=== PATIENT | female | born 1955 | race Caucasian/White ===

== ENCOUNTER 2025-03-26 10:24 | Day surgery (SDC) | payer MEDICARE, OTHER ==
[~2025-03-26 10:24] MED LIST: Lactated Ringers 1,000 ML IV ONE; Marcaine Mpf 0.5% Vial 30 Ml ONE; Xylocaine 1% Vial 30 ML PF IJ ONE
[2025-03-26] MEDS ORDERED: Lactated Ringers 1,000 ML IV ONE (11:16)
[2025-03-26] MEDS: Lactated Ringers 1,000 ML IV SCH (11:24)
[2025-03-26 11:45] VITALS: RESP 16
[2025-03-26 11:48] LABS: Hematocrit 41.2 % (34.1-44.9); Hemoglobin 13.7 g/dL (11.2-15.7); Mean Corpuscular Hemoglobin 30.7 pg (25.6-32.2); Mean Corpuscular Hgb Concent. 33.3 g/dL (32.2-35.5); Platelet Count 231 x10^3/uL (182-369); Red Blood Count 4.46 x10^6/uL (3.93-5.22); White Blood Count 6.5 x10^3/uL (3.98-10.04)
[2025-03-26] MEDS: VANCOMYCIN 1 GRAM/200 ML BAG 1 GM/200 ML PIGGYBACK IV SCH (12:06)
[2025-03-26 12:28] LABS: Calcium 9.8 mg/dL (8.4-10.2); Carbon Dioxide 24.0 mmol/L (22-30); Creatinine 1 0.97 mg/dL (0.52-1.04); EST GLOMERULAR FILTRATION RATE 63.7 ML/MIN; Glucose 89.0 mg/dL (74-106); Potassium 4.0 mmol/L (3.5-5.1); SGOT/AST 30.0 U/L (14-36); SGPT/ALT 18.0 U/L (0-35); Total Protein 7.5 g/dL (6.3-8.2)
[2025-03-26] MEDS ORDERED: SUBLIMAZE 100 MCG/2 ML ONE (12:56)
[2025-03-26] MEDS ORDERED: Xylocaine-Mpf 2% 5 Ml Vial ONE (12:56)
[2025-03-26] MEDS ORDERED: Zofran 4 MG/2 ML VIAL ONE (12:56)
[2025-03-26] MEDS ORDERED: propofoL IV ONE (12:56)
[2025-03-26] MEDS ORDERED: Versed 2 MG/2 ML Injection ONE (12:56)
[2025-03-26 14:07] VITALS: TEMP 97.5
[2025-03-26 14:24] VITALS: BP 124/69; PULSE 57; O2SAT 99
--- NOTE | 2025-03-30 08:27 | OP ---
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 2) Right foot pain. 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 2) Right foot pain. PROCEDURE: Decompression of neuroma, right foot. SURGEON: Isaac Son DPM LEATHER TOGGLER: None. ANESTHESIA: General. HEMOSTASIS: Ankle tourniquet set to 250 mmHg for a total of 11 total tourniquet minutes. ESTIMATED BLOOD LOSS: Minimal. MATERIALS: 4-0 Monocryl, 3-0 nylon. 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 She has had a significant amount of discomfort and pain depending on certain types of shoes that she has worn. She has had some relief with the use of orthotics; however, she feels relegated to the use of the orthotics and would like a little bit more freedom. She does have pain with a pencil test and a palpable Deangelo click when this was performed. An MRI demonstrates a thickening of the nerve at the level of the 3rd web space characteristic of an interdigital neuroma. From that standpoint, we have decided to proceed with the decompression as the complications associated with a neurectomy is not ideal and from that standpoint, high success rates have demonstrated improvement of patient symptoms in approximately 90% of cases. From that standpoint, patient has been made aware of all risks, complications, and benefits of surgical intervention at this time including but not limited to infection, hematoma, seroma, possibility of delayed wound healing, non-wound healing, and possible need for further surgical intervention at a later date. No guarantees were provided as to the outcome of surgical intervention. Plenty of time was allowed for the patient to ask questions, which were answered to her and her 's apparent satisfaction. It is at this time we decided to proceed. DESCRIPTION OF PROCEDURE AND FINDINGS: The patient was brought in to the operating room, placed on the operating room table in the supine position. At this time, general anesthesia was administered until the patient was adequately sedated. Once the patient was sedated, a well-padded ankle tourniquet was applied to the right ankle and the foot was then prepped and draped in the typical sterile fashion and lowered onto the surgical field. Attention was directed to the web space between the 3rd and 4th toe where a linear incision was made utilizing a 15 blade. This was carried down utilizing blunt dissection to make sure none of the intrinsic muscles or neurovascular structures were damaged. Utilizing an Freddy retractor as well as deep retraction, the identification of the deep transverse intermetatarsal ligament was identified. A Dallas was then passed underneath this deep transverse intermetatarsal ligament fraying it. Just beneath this, the interdigital neuroma was exposed and freed. The pressure was then alleviated from this area and then any adhesions or neurolysis or neural scarring were then removed utilizing a pair of iris scissors and blunt dissection. Following the procedure, the nerve was freely movable between the metatarsal heads, and no adhesions were then identified beyond that point. Copious amount of sterile saline were utilized to flush the surgical site. A 4-0 Monocryl was utilized to coapt the subcutaneous skin edges and 3-0 nylon was utilized in a horizontal mattress-type fashion to coapt the skin edges. A dressing consisting of Betadine, Adaptic, 4 x 4, Kerlix, and Wellington was applied to the patient's foot, and the patient was reversed from anesthesia and returned to the postoperative anesthesia care unit with vital signs stable and vascular status intact. Patient handled the anesthesia without significant complication. Postoperative orders as indicated in the patient's discharge chart.
== END 2025-03-26 14:35 | disposition home or self-care (01) ==
LOC: SDC 10:24
PROVIDERS: ATTEND Podiatrist Foot & Ankle Surgery
DX: G57.61 Lesion of plantar nerve, right lower limb (principal); M79.671 Pain in right foot